=== PATIENT | female | born 1985 | race Hispanic/Latino ===

== ENCOUNTER 2016-11-23 17:27 | Emergency (ER) | payer MEDICAID ==
[2016-11-23 17:27] VITALS: BMI 26.1
[2016-11-23 17:38] VITALS: TEMP 98.4
--- NOTE | 2016-11-23 18:00 | C.PDOC ---
History Of Present Illness 31 y/o female brought to ED by EMS with complaints of itchy throat, productive cough and congestion for 2 weeks. Patient states she has not taken any medication for pain and states she is 18 weeks . Patient denies abdominal pain, vaginal bleeding, fever, sob or any other complaints at this time. Time Seen by Provider: 11/23/16 17:54 Chief Complaint (Nursing): Cough, Cold, Congestion History Per: Patient History/Exam Limitations: no limitations Onset/Duration Of Symptoms: Days Current Symptoms Are (Timing): Still Present Associated Symptoms: Cough, Sputum Past Medical History Reviewed: Historical Data, Nursing Documentation, Vital Signs Vital Signs: Last Vital Signs Temp 98.4 F 11/23/16 17:33 Pulse 82 11/23/16 18:08 Resp 16 11/23/16 18:08 BP 110/66 11/23/16 18:08 Pulse Ox 99 11/23/16 18:29 - Medical History PMH: Depression - [facility] Procedures INJECT/INFUSE NEC (04/12/14) PSYCHIA INTERV/EVAL NEC (09/06/13) Family History: States: Unknown Family Hx - Social History Hx Tobacco Use: No Hx Alcohol Use: No Hx Substance Use: No - Immunization History Hx Tetanus Toxoid Vaccination: No Hx Influenza Vaccination: No Hx Pneumococcal Vaccination: No Review Of Systems Except As Marked, All Systems Reviewed And Found Negative. Constitutional: Negative for: Fever, Chills ENT: Positive for: Throat Pain Cardiovascular: Negative for: Chest Pain Respiratory: Positive for: Cough. Negative for: Shortness of Breath Gastrointestinal: Negative for: Nausea, Vomiting, Abdominal Pain Genitourinary: Negative for: Vaginal Bleeding Skin: Negative for: Rash Physical Exam - Physical Exam Appears: Non-toxic, No Acute Distress Skin: Normal Color, Warm, Dry Head: Atraumatic, Normacephalic Eye(s): bilateral: Normal Inspection, PERRL, EOMI Ear(s): Bilateral: Normal Nose: Normal Oral Mucosa: Moist Throat: Erythema (mild), No Exudate Neck: Normal, Normal ROM, Supple Chest: Symmetrical Cardiovascular: Rhythm Regular Respiratory: Normal Breath Sounds, No Accessory Muscle Use, No Rales, No Rhonchi , No Wheezing Gastrointestinal/Abdominal: Soft, No Tenderness, No Guarding, No Rebound Extremity: Bilateral: Atraumatic Neurological/Psych: Oriented x3, Normal Speech, Other (No focal deficits) ED Course And Treatment O2 Sat by Pulse Oximetry: 99 (RA) Pulse Ox Interpretation: Normal Progress Note: Discussed signs of concern and instructed to follow up with PMD in 1-2 days. Disposition - Disposition Referrals: Raciel Vo MD [Staff Provider] - Disposition: HOME/ ROUTINE Disposition Time: 17:57 Condition: STABLE Additional Instructions: Follow up with primary medical doctor in 1-3 days without fail for further evaluation. Take medications as prescribed. Return to the emergency department at any time if symptoms persist or worsen. Prescriptions: Azithromycin [Zithromax] 250 mg PO DAILY #6 tab Loratadine [Claritin] 10 mg PO DAILY #10 tab Instructions: Upper Respiratory Infection (ED) Forms: [email or web address] (Bermudian) - Clinical Impression Clinical Impression: Bronchitis - Scribe Statement The provider has reviewed the documentation as recorded by the Shonaibamalia Delvalle All medical record entries made by the Shonaibe were at my direction and personally dictated by me. I have reviewed the chart and agree that the record accurately reflects my personal performance of the history, physical exam, medical decision making, and the department course for this patient. I have also personally directed, reviewed, and agree with the discharge instructions and disposition.
[2016-11-23 18:09] VITALS: BP 110/66; PULSE 82; RESP 16
[2016-11-23 18:26] VITALS: O2SAT 99
== END 2016-11-23 18:08 | disposition home or self-care (01) ==
LOC: C.ER 17:27
DX: J40 Bronchitis, not specified as acute or chronic (principal)

== ENCOUNTER 2017-01-07 08:44 | Emergency (ER) | payer MEDICAID ==
[2017-01-07 08:44] VITALS: BMI 26.1
[2017-01-07 10:32] VITALS: O2SAT 100
--- NOTE | 2017-01-07 11:44 | C.PDOC ---
History Of Present Illness 31 y/o female currently 25 weeks presents to ed with complaints of cough, body aches, sore and itchy throat for 5 days. Patient was seen at ED x1 month ago for similar symptoms, given Claritin and Azithromycin with relief but symptoms came back. Patient denies fever, chest pain, sob, headache or any other complaints at this time. Time Seen by Provider: 01/07/17 09:27 Chief Complaint (Nursing): Cough, Cold, Congestion History Per: Patient History/Exam Limitations: no limitations Onset/Duration Of Symptoms: Days Current Symptoms Are (Timing): Still Present Past Medical History Reviewed: Historical Data, Nursing Documentation, Vital Signs Vital Signs: Last Vital Signs Temp 98.2 F 01/07/17 10:30 Pulse 83 01/07/17 10:30 Resp 20 01/07/17 10:30 BP 115/76 01/07/17 10:30 Pulse Ox 100 01/07/17 11:46 - Medical History PMH: Depression Surgical History: No Surg Hx - [facility] Procedures INJECT/INFUSE NEC (04/12/14) PSYCHIA INTERV/EVAL NEC (09/06/13) Family History: States: Unknown Family Hx - Social History Hx Tobacco Use: No Hx Alcohol Use: No Hx Substance Use: No - Immunization History Hx Tetanus Toxoid Vaccination: No Hx Influenza Vaccination: No Hx Pneumococcal Vaccination: No Review Of Systems Except As Marked, All Systems Reviewed And Found Negative. Constitutional: Negative for: Fever, Chills ENT: Positive for: Throat Pain, Throat Swelling Respiratory: Positive for: Cough Gastrointestinal: Negative for: Nausea, Vomiting, Diarrhea Musculoskeletal: Negative for: Back Pain Skin: Negative for: Rash Physical Exam - Physical Exam Appears: Non-toxic, No Acute Distress Skin: Normal Color, Warm, Dry, No Rash Head: Atraumatic, Normacephalic Eye(s): bilateral: Normal Inspection Nose: Other (congested nasally) Oral Mucosa: Moist Throat: Normal, No Erythema Chest: Symmetrical Cardiovascular: Rhythm Regular, No Murmur Respiratory: Normal Breath Sounds, No Rales, No Rhonchi, No Wheezing Gastrointestinal/Abdominal: Soft, No Tenderness, No Guarding, No Rebound Extremity: Normal ROM, No Pedal Edema Neurological/Psych: Oriented x3 ED Course And Treatment O2 Sat by Pulse Oximetry: 100 (RA) Pulse Ox Interpretation: Normal Disposition - Disposition Disposition: HOME/ ROUTINE Disposition Time: 12:05 Condition: STABLE Prescriptions: Prednisone [Deltasone] 60 mg PO DAILY #12 tablet Instructions: Upper Respiratory Infection (ED) Forms: [facility] (South Korean) - POA Present On Arrival: None - Clinical Impression Clinical Impression: Influenza-like illness - Scribe Statement The provider has reviewed the documentation as recorded by the Shonaibamalia Delvalle All medical record entries made by the Shonaibamalia were at my direction and personally dictated by me. I have reviewed the chart and agree that the record accurately reflects my personal performance of the history, physical exam, medical decision making, and the department course for this patient. I have also personally directed, reviewed, and agree with the discharge instructions and disposition.
[2017-01-07 12:07] VITALS: BP 127/85; PULSE 74; RESP 18; TEMP 97.9
== END 2017-01-07 12:05 | disposition home or self-care (01) ==
LOC: C.ER 08:44
DX: J11.1 Influenza due to unidentified influenza virus with other respiratory manifestations (principal)

== ENCOUNTER 2018-06-07 23:55 | Emergency (ER) | payer MEDICAID, OTHER ==
[2018-06-07 23:56] VITALS: BMI 37.4
[2018-06-08 00:07] VITALS: BP 129/83; PULSE 85; RESP 20; TEMP 98.1; O2SAT 98
--- NOTE | 2018-06-08 00:17 | C.PDOC ---
History Of Present Illness 33 year old female presents to the ED c/o cough, sore throat and nasal congestion for the past week. Patient denies fever, chills, headache, nausea, vomit, rash, recent travel, sick contacts. Time Seen by Provider: 06/08/18 00:06 Chief Complaint (Nursing): Cough, Cold, Congestion History Per: Patient History/Exam Limitations: no limitations Onset/Duration Of Symptoms: Days Current Symptoms Are (Timing): Still Present Location Of Pain: Throat, Sinus/es Associated Symptoms: Sore Throat, Cough, Sinus Drainage, Nasal Congestion. d enies: Fever, Chills Ear Symptoms: Bilateral: None Recent travel outside of the [place]: No Additional History Per: Patient Past Medical History Reviewed: Historical Data, Nursing Documentation, Vital Signs Vital Signs: Last Vital Signs Temp 98.1 F 06/08/18 00:02 Pulse 85 06/08/18 00:02 Resp 20 06/08/18 00:02 BP 129/83 06/08/18 00:02 Pulse Ox 98 06/08/18 00:02 - Medical History PMH: No Chronic Diseases Denies: Depression, Diabetes, HTN Surgical History: No Surg Hx - [facility] Procedures DELIVERY OF PRODUCTS OF CONCEPTION, EXTERNAL APPROACH (03/31/17) INJECT/INFUSE NEC (04/12/14) MONITORING OF POC, CARDIAC RATE, DENTAL APPLIANCE FIXER APPROACH (03/31/17) PSYCHIA INTERV/EVAL NEC (09/06/13) REPAIR PERINEUM SKIN, EXTERNAL APPROACH (03/31/17) Family History: States: Unknown Family Hx - Social History Hx Tobacco Use: No Hx Alcohol Use: No Hx Substance Use: No - Immunization History Hx Tetanus Toxoid Vaccination: No Hx Influenza Vaccination: No Hx Pneumococcal Vaccination: No Review Of Systems Constitutional: Negative for: Fever, Chills ENT: Positive for: Nose Discharge, Nose Congestion, Throat Pain Respiratory: Positive for: Cough. Negative for: Shortness of Breath, Sputum, Wheezing Gastrointestinal: Negative for: Nausea, Vomiting, Abdominal Pain Skin: Negative for: Rash Neurological: Negative for: Weakness, Numbness, Headache Physical Exam - Physical Exam Appears: Non-toxic, No Acute Distress Skin: Normal Color, Warm, Dry Head: Atraumatic, Normacephalic Eye(s): bilateral: Normal Inspection Ear(s): Bilateral: Normal Oral Mucosa: Moist Throat: Normal, No Erythema, No Exudate Neck: Normal ROM, Supple Chest: Symmetrical Cardiovascular: Rhythm Regular Respiratory: Normal Breath Sounds, No Rales, No Rhonchi, No Wheezing Extremity: Normal ROM, No Tenderness Neurological/Psych: Oriented x3, Normal Speech, Normal Cognition Gait: Steady ED Course And Treatment O2 Sat by Pulse Oximetry: 98 (ON RA) Pulse Ox Interpretation: Normal Progress Note: Patient is resting comfortably, and is in no acute distress. Patient was instructed to follow up with PMD in 1-2 days for further evaluation. Disposition Counseled Patient/Family Regarding: Diagnosis, Need For Followup - Disposition Referrals: Raciel Vo MD [Staff Provider] - Disposition: HOME/ ROUTINE Disposition Time: 00:14 Condition: STABLE Additional Instructions: Take medications as directed Increase PO fluids Return to if worse Prescriptions: Benzonatate [Tessalon Perles] 200 mg PO TID #14 sgl Cetirizine HCl [Zyrtec] 10 mg PO DAILY #14 capsule Instructions: Viral Upper Respiratory Infection, Adult (DC) Forms: [employer] (Indian) - Clinical Impression Clinical Impression: Upper respiratory infection - PA / YARD ASSISTANT / Resident Statement MD/DO has reviewed & agrees with the documentation as recorded. - Scribe Statement The provider has reviewed the documentation as recorded by the Scribe Chuy Gray All medical record entries made by the Scribe were at my direction and personally dictated by me. I have reviewed the chart and agree that the record accurately reflects my personal performance of the history, physical exam, medical decision making, and the department course for this patient. I have also personally directed, reviewed, and agree with the discharge instructions and disposition.
== END 2018-06-08 00:24 | disposition home or self-care (01) ==
LOC: C.ER 23:55
DX: J06.9 Acute upper respiratory infection, unspecified (principal)

== ENCOUNTER 2018-07-14 21:27 | Emergency (ER) | payer OTHER ==
[2018-07-14 21:27] VITALS: BMI 37.4
[2018-07-14] MEDS ORDERED: Sodium Chloride 0.9% 1,000 ML IV ONE (23:14)
[2018-07-14] MEDS ORDERED: Sodium Chloride 0.9% 1,000 ML ONE (23:24)
[2018-07-14 23:41] LABS: BASO % 0.4 % (0.0-2.0); EOS % 0.4 % (0.0-4.0); HEMOGLOBIN 13.7 g/dL (11.0-16.0); LYMPH # 0.6 K/uL (1.0-4.3); LYMPH % 6.3 % (20.0-40.0); MEAN CELL VOLUME 89.8 fL (81.0-99.0); MEAN CORPUSCULAR HEMOGLOBIN 30.3 pg (27.0-31.0); MEAN CORPUSCULAR HGB CONC 33.8 g/dL (33.0-37.0); MEAN PLATELET VOLUME 8.5 fL (7.2-11.7); MONO # 0.5 K/uL (0.0-0.8); MONO % 4.5 % (0.0-10.0); NEUT # 8.9 K/uL (1.8-7.0); NEUT % 88.4 % (50.0-75.0); PLATELET COUNT 263 K/uL (130-400); RBC 4.53 Mil/uL (3.80-5.20); RED CELL DISTRIBUTION WIDTH 14.6 % (11.5-14.5); WHITE BLOOD COUNT 10.1 K/uL (4.8-10.8)
[2018-07-14 23:49] LABS: SQUAMOUS EPITHIAL 6 /hpf (0-5); URINE BACTERIA OCC (<OCC); URINE BILIRUBIN NEGATIVE (NEGATIVE); URINE BLOOD NEGATIVE (NEGATIVE); URINE CLARITY Hazy (Clear); URINE COLOR Yellow (YELLOW); URINE GLUCOSE (UA) NORMAL (Normal); URINE LEUKOCYTE ESTERASE NEG Leu/uL (Negative); URINE PROTEIN NEGATIVE (NEGATIVE)
[2018-07-14 23:54] LABS: ALB/GLOB RATIO 1.3 (1.0-2.1); ALBUMIN 4.2 g/dL (3.5-5.0); ALT/SGPT 11 U/L (9-52); AST/SGOT 20 U/L (14-36); BLOOD UREA NITROGEN 11 mg/dL (7-17); CALCIUM 8.8 mg/dl (8.6-10.4); GFR NON-AFRICAN AMERICAN > 60; LIPASE 56 U/L (23-300)
[2018-07-15] MEDS ORDERED: Morphine 4 MG/ML VIAL IV STA (00:32)
--- NOTE | 2018-07-15 00:33 | C.PDOC ---
History Of Present Illness 33 year old female presents to the ED for evaluation of diffuse abdominal pain which began two days ago. Patient notes her boyfriend is currently being treated for H. Pylori. She denies nausea,vomiting and diarrhea at this time. Time Seen by Provider: 07/14/18 22:56 Chief Complaint (Nursing): Abdominal Pain History Per: Patient History/Exam Limitations: no limitations Onset/Duration Of Symptoms: Days (2) Current Symptoms Are (Timing): Still Present Location Of Pain/Discomfort: Diffuse Quality Of Discomfort: "Pain" Associated Symptoms: denies: Nausea, Vomiting, Diarrhea Past Medical History Reviewed: Historical Data, Nursing Documentation, Vital Signs Vital Signs: Last Vital Signs Temp 99.5 F 07/14/18 22:00 Pulse 94 H 07/14/18 22:00 Resp 22 07/14/18 22:00 BP 112/77 07/14/18 22:00 Pulse Ox 99 07/14/18 22:00 - Medical History PMH: No Chronic Diseases Denies: Depression, Diabetes, HTN Surgical History: No Surg Hx - [facility] Procedures DELIVERY OF PRODUCTS OF CONCEPTION, EXTERNAL APPROACH (03/31/17) INJECT/INFUSE NEC (04/12/14) MONITORING OF POC, CARDIAC RATE, FORCE ADJUSTMENT SUPERVISOR APPROACH (03/31/17) PSYCHIA INTERV/EVAL NEC (09/06/13) REPAIR PERINEUM SKIN, EXTERNAL APPROACH (03/31/17) Family History: States: Unknown Family Hx - Social History Hx Tobacco Use: No Hx Alcohol Use: No Hx Substance Use: No - Immunization History Hx Tetanus Toxoid Vaccination: No Hx Influenza Vaccination: No Hx Pneumococcal Vaccination: No Review Of Systems Constitutional: Negative for: Fever, Chills Gastrointestinal: Positive for: Abdominal Pain (diffuse ). Negative for: Nausea, Vomiting, Diarrhea Physical Exam - Physical Exam Appears: Non-toxic, No Acute Distress Skin: Normal Color, Warm, Dry Head: Atraumatic, Normacephalic Eye(s): bilateral: Normal Inspection Oral Mucosa: Moist Neck: Supple Chest: Symmetrical, No Deformity, No Tenderness Cardiovascular: Rhythm Regular, No Murmur Respiratory: Normal Breath Sounds, No Rales, No Rhonchi, No Wheezing Gastrointestinal/Abdominal: Soft, Tenderness (diffuse, mainly in epigastrium ), No Guarding, No Rebound Extremity: Normal ROM, Capillary Refill (less than 2 seconds ) Neurological/Psych: Oriented x3, Normal Speech, Normal Cognition ED Course And Treatment - Laboratory Results Result Diagrams: 07/14/18 23:38 07/14/18 23:38 Lab Results: Total Bilirubin 0.7 mg/dL (0.2-1.3) 07/14/18 23:38 AST 20 U/L (14-36) 07/14/18 23:38 ALT 11 U/L (9-52) 07/14/18 23:38 Alkaline Phosphatase 69 U/L (38-126) 07/14/18 23:38 Total Protein 7.5 g/dL (6.3-8.3) 07/14/18 23:38 Albumin 4.2 g/dL (3.5-5.0) 07/14/18 23:38 Globulin 3.2 gm/dL (2.2-3.9) 07/14/18 23:38 Albumin/Globulin Ratio 1.3 (1.0-2.1) 07/14/18 23:38 Lipase 56 U/L (23-300) 07/14/18 23:38 Urine Color Yellow (YELLOW) 07/14/18 23:38 Urine Clarity Hazy (Clear) 07/14/18 23:38 Urine pH 6.0 (5.0-8.0) 07/14/18 23:38 Ur Specific [place] 1.024 (1.003-1.030) 07/14/18 23:38 Urine Protein Negative mg/dL (NEGATIVE) 07/14/18 23:38 Urine Glucose (UA) Normal mg/dL (Normal) 07/14/18 23:38 Urine Ketones Trace mg/dL (NEGATIVE) 07/14/18 23:38 Urine Blood Negative (NEGATIVE) 07/14/18 23:38 Urine Nitrate Negative (NEGATIVE) 07/14/18 23:38 Urine Bilirubin Negative (NEGATIVE) 07/14/18 23:38 Urine Urobilinogen 2.0 mg/dL (0.2-1.0) H 07/14/18 23:38 Ur Leukocyte Esterase Neg Jose/uL (Negative) 07/14/18 23:38 Urine WBC (Auto) 1 /hpf (0-5) 07/14/18 23:38 Urine RBC (Auto) 2 /hpf (0-3) 07/14/18 23:38 Ur Squamous Epith Cells 6 /hpf (0-5) H 07/14/18 23:38 Urine Bacteria Occ (<OCC) H 07/14/18 23:38 O2 Sat by Pulse Oximetry: 99 (on RA ) Pulse Ox Interpretation: Normal Medical Decision Making Medical Decision Making: Assessment: abdominal pain Progress: Bloodwork and urinalysis ordered and reviewed. Pepcid IVP, Toradol IVP, Zofran IVP and IV fluids given. On reassessment, patient reports her pain has not improved. CT A/P ordered, Morphine IVP given. Patient signed to Dr. Torres. Disposition - Disposition Disposition Time: 01:00 Condition: STABLE Forms: [employer] (Argentine) - Clinical Impression Clinical Impression: Abdominal pain - Scribe Statement The provider has reviewed the documentation as recorded by the Scribe (Susanna Palafox) Provider Attestation: All medical record entries made by the Scribe were at my direction and personally dictated by me. I have reviewed the chart and agree that the record a ccurately reflects my personal performance of the history, physical exam, medical decision making, and the department course for this patient. I have also personally directed, reviewed, and agree with the discharge instructions and disposition.
[2018-07-15] MEDS ORDERED: Iodixanol 320 MG/ML 100 ML BOTTLE IV ONE (00:39)
[2018-07-15 01:04] VITALS: O2SAT 98
[2018-07-15 02:09] LABS: BANDS 3 % (0-2); LYMPHOCYTE 8 % (20-40); MONOCYTE 4 % (0-10); NEUTROPHIL 85 % (50-75); PLATELET ESTIMATE NORMAL (NORMAL); TOTAL CELLS COUNTED 100
[2018-07-15 04:41] VITALS: BP 105/72; PULSE 90; RESP 20; TEMP 99
--- NOTE | 2018-07-15 08:49 | CT ---
Date of service: 07/15/2018 PROCEDURE: CT Abdomen and Pelvis with contrast HISTORY: Abdominal pain COMPARISON: 06/03/2011 TECHNIQUE: CT scan of the abdomen and pelvis was performed after administration of intravenous contrast. Oral contrast was not administered. Coronal and sagittal reformatted images were obtained. Contrast dose: 100 mL Visipaque 320 Radiation dose: Total exam DLP = 1029.97 mGy-cm. This CT exam was performed using one or more of the following dose reduction techniques: Automated exposure control, adjustment of the mA and/or kV according to patient size, and/or use of iterative reconstruction technique. FINDINGS: LOWER THORAX: The visualized lungs are clear. LIVER: Normal in size with homogeneous enhancement. No gross lesion or ductal dilatation. GALLBLADDER AND BILE DUCTS: Well distended. No calcified gallstones, wall thickening or pericholecystic fluid. PANCREAS: Normal in size with homogeneous enhancement. No gross lesion or ductal dilatation. SPLEEN: Normal in size and appearance. ADRENALS: No discrete nodule. KIDNEYS AND URETERS: Normal in size with homogeneous enhancement. No hydronephrosis. No solid mass. VASCULATURE: No aortic aneurysm. There are no aortic atherosclerotic calcifications or mural plaque present. BOWEL: Evaluation of the bowel is limited in the absence of oral contrast. There are fluid-filled mildly prominent mid and distal small bowel lobes. There is also fluid in the ascending colon. There is apparent mild circumferential mural thickening in the transverse and descending colon. The colon is grossly normal in appearance. No bowel wall thickening or obstruction. APPENDIX: Normal appendix. PERITONEUM: Small amount of free fluid in the pelvis which may be reactive or physiologic. No free air. LYMPH NODES: No enlarged lymph nodes. BLADDER: Partially decompressed. REPRODUCTIVE: The uterus is normal in size. BONES: No acute fracture. Within normal limits for the patient's age. OTHER FINDINGS: Ventriculoperitoneal shunt catheter terminates in the left hemipelvis. IMPRESSION: Findings may represent nonspecific acute infectious/inflammatory enterocolitis. No bowel obstruction. A preliminary report was provided by [employer].
== END 2018-07-15 04:43 | disposition home or self-care (01) ==
LOC: C.ER 21:27
DX: R10.84 Generalized abdominal pain (principal)
CPT/HCPCS: 74177; 80053; 81001; 81025; 83690; 84702; 85025; 87086; 96361; 96374; 96375; 99284; J1885; J2270; J2405; J7030; Q9967